=== PATIENT | female | born 1985 | race Caucasian/White ===

== ENCOUNTER 2025-01-29 04:42 | Emergency (ER) | payer OTHER, SELFPAY ==
--- OUTSIDE RECORDS SUMMARY | 2025-01-29 04:44 | XMS_ITS | Clinical Summary ---
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 16 g 4 Active busPIRone (BUSPAR) 5 mg tabletIndications :Situational anxiety Take 1-2 Tablets (5-10 mg) by mouth 3 times daily if needed for Anxiety. 30 Tablet 5 06/11/2024 10:39 AM WATER PLANT PUMP OPERATOR SUPERVISOR 4 Active ALPRAZolam 0.5 mg tabletIndications :Fear of flying Take 2 tablets (1 mg) an hour before each flight 4 Tablet 12/20/2024 12:09 PM CDT 5 Active lisdexamfetamine (Vyvanse) 30 mg capsuleIndication s:Attention deficit hyperactivity disorder (ADHD), predominantly inattentive type Take 1 Capsule (30 mg) by mouth once daily. 30 Capsule 01/21/2025 1:14 PM CDT 5 02/21/20 25 Active lisdexamfetamine (Vyvanse) 30 mg capsuleIndication s:Attention deficit hyperactivity disorder (ADHD), predominantly inattentive type Take 1 Capsule (30 mg) by mouth once daily. 30 Capsule 5 Active dextroamphetamine -amphetamine (AdderalL) 5 mg tabletIndications :Attention deficit hyperactivity disorder (ADHD), predominantly inattentive type Take 1 Tablet (5 mg) by mouth once daily. In afternoon 30 Tablet 5 02/17/20 25 Active dextroamphetamine -amphetamine (AdderalL) 5 mg tabletIndications :Attention deficit hyperactivity disorder (ADHD), predominantly inattentive type Take 1 Tablet (5 mg) by mouth once daily. In afternoon 30 Tablet 5 Active lisdexamfetamine (Vyvanse) 30 mg capsuleIndication s:Attention deficit hyperactivity disorder (ADHD), predominantly inattentive type Take 1 Capsule (30 mg) by mouth once daily. 30 Capsule 12/20/2024 12:09 PM CDT 5 01/20/20 25 dextroamphetamine -amphetamine (AdderalL) 5 mg tabletIndications :Attention deficit hyperactivity disorder (ADHD), predominantly inattentive type Take 1 Tablet (5 mg) by mouth once daily. In afternoon 30 Tablet 12/20/2024 12:09 PM CDT 5 01/20/20 25 Active Problems Problem Noted Date Diagnosed Date Attention deficit hyperactiv ity disorder (ADHD), predominantly inattentive type 12/18/2024 ASCUS of cervix with negative high risk HPV 11/2023 Overview (06/14/2024): 05/2024 ASCUS/HPV negative Plan: Pap and HPV due 05/2027 Recurrent oral herpes simplex infection 11/06/19 15 Supervision of normal first 06/26/2010 Encounters Date Type Department Care Team Description 12/18/2024 9:00 AM CDT Office Visit [facility] [address] [place] [address] Ruth Soni MD Medication Management (Has been taking 30mg - sometimes is enough, sometimes not. Midday dose is very helpful ) 12/18/2024 Travel from Last 3 Months Immunizations Immunization Administration Dates Next Due COVID-19 vaccine (Moderna 10 0mcg/0.5mL) KIMMY SANTILLAN 05/16/2021,09/08/2020,08/09/2020 DTaP 1984,1984 Hepatitis A (Adult) 08/02/2008 Hepatitis B (Peds) 08/20/2002,04/17/2002, 002 Hepatitis B, Unspecified 12/18/2001 Influenza, IIV4 04/15/2021,04/17/2020,05/23/2019 MMR 10/30/1989,03/13/1986 Polio Virus, Unspecified 1984,1984 Td (Age >=7 Years) 04/27/2006 Td, Preservative Free (age >= 7 Years) 9 Tdap 04/27/2006 Typhoid (injectable) 08/02/2008 Family History Medical History Relation Name Comments Alcoholism Brother 1 Arnold Good Health Brother 1 Julian allergies to ca ts and mold Good Health Brother 2 allergies to ca t and mold Good Health Brother 3 Good Health Brother 4 Diabetes Father type II Hyperlipidemia Father on medication Hypertension Father Thyroid Disease Father Alcoholism Maternal Grandfather Heart Disease Maternal Grandfather Heart attack Maternal Grandfather Arthritis Maternal Grandmother Cancer-breast Mother rare form that is slow growing Coronary artery disease Mother GI Disease Mother colititis and o verweight Heart Disease Mother Skin cancer Mother leg Alcohol/Drug Paternal Grandfather Heart Disease Paternal Grandfather Osteoporosis Paternal Grandmother Relation Name Status Comments Brother 1 Arnold Alive Brother 2 Alive Brother 3 Alive Brother 4 Alive Father Alive Maternal Grandfather Maternal Grandmother Mother Alive Paternal Grandfather Paternal Grandmother Social History Tobacco Use Types Packs/Day Years Used Date Smoking Tobacco: Never Smokeless Tobacco: Never Tobacco Cessation:Counseling Given: Yes Alcohol Use Standard Drinks/Week Comments Yes 0 (1 standard drink = 0.6 oz pur e alcohol) 1-2 per day PHQ-2 Answer Date Recorded PHQ-2 TOTAL SCORE 0 06/06/2024 Social Connections Answer Date Recorded Do you often feel lonely or isolated from those around you? 0 12/18/2024 Financial Resource Strain Answer Date R ecorded Difficulty of Paying Living Expenses 3 12/18/2024 Difficulty of Paying Living Expenses Not on file 12/18/2024 Food Insecurity Answer Date Recorded Do you worry your food will run out before you are able to buy more? 1 12/18/2024 Transportation Needs Answer Date Record ed Does lack of transportation keep you from medica l appointments? 1 12/18/2024 Does lack of transportation keep you from work, meetings or getting things that you need? 1 12/18/2024 Housing Stability Answer Date Recorded What is your housing situation today? 1 12/18/2024 Utilities Answer Date Recorded Do you have trouble paying f or utilities (for example, heat, electricity, water, phone)? 1 12/18/2024 Comments No Sex and Gender Information Value Date Recorded Sex Assigned at Not on file Legal Sex Female 5:24 AM WATER PLANT PUMP OPERATOR SUPERVISOR Gender Identity Not on file Sexual Orientation Not on file Occupation Industry Job Start Date Job End Date Not on file Not on file Not on file Not on file Obstetrics History Para Term AB IAB SAB Ectopic Multiple Livin g Live Births 2 2 2 2 Date Outcome GA Total Labor Labor/2nd/3rd Weight Sex Type Anes PTL Maggie A1 A5 Name Clin 2010 Term M Vag Comments:EMILY: 02/11/11; System Generated. Please review and update details. 2013 Term F Vag Last Filed Vital Signs Vital Sign Reading Time Taken Comments Blood Pressure 104/71 12/18/2024 8:59 AM CDT Pulse 72 12/18/2024 8:59 AM CDT Temperature 36.6 C (97.9 F) 09/19/2019 5:14 PM CDT Respiratory Rate 18 10/29/2014 4:11 PM CDT Oxygen Saturation 99% 12/18/2024 8:59 AM CDT Inhaled Oxygen Concentration - - Weight 64.4 kg (142 lb) 06/06/2024 8:49 AM WATER PLANT PUMP OPERATOR SUPERVISOR Height 162 cm (5' 3.78) 06/06/2024 8:49 AM WATER PLANT PUMP OPERATOR SUPERVISOR Body Mass Index 24.54 06/06/2024 8:49 AM WATER PLANT PUMP OPERATOR SUPERVISOR Plan of Treatment Health Maintenance Due Date Last Done Comments Hepatitis C screening for age 18-79 01/23/2002 COVID-19 vaccine series ( season) 2024 05/16/2021, 09/08/2020, 08/09/2020 Influenza Vaccine (#1) 2025 , 04/17/2020, 05/23/2019 BMI (ht and wt on same day) for age 18+ 06/06/2025 06/06/2024, 11/07/2023, 05/06/2023, Additional history exists Depression screening for age 12+ 06/06/2025 06/06/2024, 05/06/2023, 05/05/2023, Additional history exists Pap test for age 21-65 06/06/2027 , 06/06/2024, 09/26/2018, Additional history exists Tetanus booster 09/26/2028 09/26/2018, 04/10, 04/27/2006 Hepatitis B series for 19+ Completed 08/20, 04/17/2002, 01/17/2002, Additional history exists HIV for age 15-65 Completed 06/02/2010 Pneumococcal series for age 6-49 Aged Out No longer eligible based on patient's age to complete this topic Procedures Procedure Name Priority Date/Time Associated Diagnosis Comments RESEARCH STAFF MEMBER THIN PREP PAP SCREEN IMAGED Routine 06/06/2024 1:01 PM WATER PLANT PUMP OPERATOR SUPERVISOR Cervical cancer screening ANTI HIV 1/2 Routine 06/02/2010 6:38 PM WATER PLANT PUMP OPERATOR SUPERVISOR Supervision of normal first (HC) from Last 3 Months or Most Recently Relevant to Health Maintenance Results * (ABNORMAL) RESEARCH STAFF MEMBER THIN PREP PAP SCREEN IMAGED (06/06/2024 1:01 PM WATER PLANT PUMP OPERATOR SUPERVISOR) Case Report Gynecologic Cytology Report Case: [id number] Authorizing Provider: Ruth Soni Collected: 06/06/2024 Serafin Holden MD Ordering Location: [facility] Received: 06/06/2024 1301 Clinic First Screen: Ijeoma Garcia Rescreen: Baccam, Minie Pathologist: Sree Welch MD Specimen: RESEARCH STAFF MEMBER ThinPrep Vial Screening, Cervical 06/14/2024 8:45 AM WATER PLANT PUMP OPERATOR SUPERVISOR [facility] INTERPRETATION/ RESULT ATYPICAL SQUAMOUS CELLS OF UNDETERMINED SIGNIFICANCE (ASCUS)(A) (none) 06/14/2024 8:45 AM WATER PLANT PUMP OPERATOR SUPERVISOR [facility] at 0845 WATER PLANT PUMP OPERATOR SUPERVISOR SPECIMEN ADEQUACY Satisfactory for evaluation Endocervical component present 06/14/2024 8:45 AM WATER PLANT PUMP OPERATOR SUPERVISOR [facility] HPV REQUEST HPV and PAP 06/14/2024 8:45 AM WATER PLANT PUMP OPERATOR SUPERVISOR [facility] Date of LMP 04/30/2024 06/14/2024 8:45 AM WATER PLANT PUMP OPERATOR SUPERVISOR [facility] Last Pap Date 09/26/18 06/14/2024 8:45 AM WATER PLANT PUMP OPERATOR SUPERVISOR [facility] Last Pap Result NIL 8:45 AM WATER PLANT PUMP OPERATOR SUPERVISOR [facility] Abnormal Pap or [place] Bx in last 5 years No 06/14/2024 8:45 AM WATER PLANT PUMP OPERATOR SUPERVISOR [facility] Menstrual Status Regular Periods 06/14/2024 8:45 AM WATER PLANT PUMP OPERATOR SUPERVISOR [facility] [place] Bx Done Today No 06/14/2024 8:45 AM WATER PLANT PUMP OPERATOR SUPERVISOR [facility] Additional Information None given 06/14/2024 8:45 AM WATER PLANT PUMP OPERATOR SUPERVISOR [facility] Comment: Cytology is screened at [facility] - [address], [place] [address] and [facility] - [address] [place] [address] and [facility] - [address] [place] [address] Interpreted at [facility] - [address], [place] [address] Automated Review Successful 06/14/2024 8:45 AM [facility] Comment:Specimen processed s uccessfully by automated payroll analyst device, ThinPrep Imaging System, [employer] ANCILLARY TESTING RESEARCH STAFF MEMBER HPV Ordered, Please see separate report 06/14/2024 8:45 AM WATER PLANT PUMP OPERATOR SUPERVISOR [facility] Note The pap test is a screening technique, not a diagnostic procedure. It is used primarily to screen for squamous cancers and precursor lesions. Published studies have shown that it is subject to both false negative and false positive results. The pap test should not be used as the sole means to diagnose or exclude pre-malignant and malignant lesions. 06/14/2024 8:45 AM WATER PLANT PUMP OPERATOR SUPERVISOR [facility]AL LAB[facility] Other (Cervical) Non-Blood / Unknown 06/06/2024 1:01 PM WATER PLANT PUMP OPERATOR SUPERVISOR 06/06/2024 1:01 PM WATER PLANT PUMP OPERATOR SUPERVISOR us Ruth Soni MD PATHOLOGY/CYTOLOGY Final Result [facility] [address] [address], [place] * HIV (06/02/2010 6:38 PM WATER PLANT PUMP OPERATOR SUPERVISOR) ANTI HIV 1/2 Non-reacti ve [facility] Blood specimen (specimen) BLOOD SPECIMEN / Unknown 06/02/2010 6:38 PM WATER PLANT PUMP OPERATOR SUPERVISOR 06/02/2010 6:19 PM WATER PLANT PUMP OPERATOR SUPERVISOR us Arlette Barbosa GAS ATTENDANT SEND OUTS Final Result Performing Organization Address City/[facility]/ZIP Co de Phone Number [facility] INTERNAL ZIP [phone] [address] from Last 3 Months or Most Recently Relevant to Health [place] [address] Care Teams Candy Rolling Machine Operator Relationship Specialty Start Date End Date [place] [address] PCP - General Family Practice 01/05/24
[2025-01-29 04:46] VITALS: BP 138/85; PULSE 68; RESP 18; TEMP 36.9; O2SAT 99; BMI 24.8
--- NOTE | 2025-01-29 04:51 | ED.GENADULT ---
HPI - General Adult General Time Seen by Provider: 04:51 Date Seen: 01/29/25 Chief complaint: Skin/Abscess/Foreign Body Stated complaint: cat scratched L eye Source: patient Mode of arrival: ambulatory Limitations: no limitations History of Present Illness HPI narrative: 40-year-old female comes in a scratch. Patient's cat got startled and scratched her eyelid. No vision changes. Does not wear contacts. Related Data Home Medications ?Medication ?Instructions ?Recorded ?Confirmed lisdexamfetamine 30 mg capsule 30 mg PO DAILY 01/29/25 01/29/25 Previous Rx's ?Medication ?Instructions ?Recorded amoxicillin 875 mg-potassium 1 tab PO BID #6 tabs 01/29/25 clavulanate 125 mg tablet Allergies Allergy/AdvReac Type Severity Reaction Status Date / Time No Known Drug Allergies Allergy Verified 01/29/25 04:49 [facility] Medical History (Updated 01/29/25 @ 04:59 by Alok Bae MD) ADHD ?F90.9 - Attention-deficit hyperactivity disorder, unspecified type (ICD-10) Social History Smoking Status: Never smoker Second hand tobacco smoke exposure: No How often do you have a drink containing alcohol: never AUDIT-C Alcohol total score: 0 Non-prescribed substance use: denies use Exam Narrative: Exam Narrative: General: well nourished , NAD Head: Atraumatic and normocephalic ENT: External ears and external nose are normal Eyes: Conjunctiva clear, pupils are equal reactive, external ocular motions are intact. Scratch of the right upper lid with some surrounding bruising, not through and through. Superficial scratch to the lower lid. Neck: Full spontaneous range of motion of the neck Lungs: No respiratory distress Musculoskeletal: No tenderness or deformity Neurologic: No gross focal neurologic deficits Skin: No rashes Psych: Mood and affect are appropriate Const: Vital Signs, click to edit/add: Vital Signs - 24 hr 01/29/25 04:46 Temperature 98.4 F Pulse Rate [Right Pulse Oximeter] 68 Respiratory Rate 18 Blood Pressure [Ri ght Upper Arm] 138/85 Pulse Oximetry 99 Oxygen Delivery Me thod Room Air Course Course ED Course: Patient seen and examined, presents today with scratch to the upper lower eyelids after her cat got startled and editor trade journal. These are not through and through, there is no conjunctival injection to suggest abrasion or foreign body. No vision changes. Discussed wound care in stable for discharge. Patient is anxious about infection, as this is a scratch infection risk is low but will be started on a couple of days antibiotics. Vital Signs Vital signs: Initial Vital Signs Temperature 98.4 F 01/29/25 04:46 Temperature Source Temporal Artery Scan 01/29/25 04:46 Pulse Rate 68 01/29/25 04:46 Respiratory Rate 18 01/29/25 04:46 Blood Pressure 138/85 01/29/25 04:46 Blood Pressure Mean 102 01/29/25 04:46 Blood Pressure Position Sitting 01/29/25 04:46 Pulse Oximetry 99 01/29/25 04:46 Oxygen Delivery Method Room Air 01/29/25 04:46 Vital Signs Temperature 98.4 F 01/29/25 04:46 Pulse Rate 68 01/29/25 04:46 Respiratory Rate 18 01/29/25 04:46 Blood Pressure 138/85 01/29/25 04:46 Pulse Oximetry 99 01/29/25 04:46 Oxygen Delivery Method Room Air 01/29/25 04:46 Temperature 98.4 F 01/29/25 04:46 Pulse Rate 68 01/29/25 04:46 Respiratory Rate 18 01/29/25 04:46 Blood Pressure 138/85 01/29/25 04:46 Pulse Oximetry 99 01/29/25 04:46 Oxygen Delivery Method Room Air 01/29/25 04:46 Discharge Plan Discharge Clinical Impression: Eyelid laceration Patient Disposition: Home, Self-Care Instructions: Laceration Without Closure (ED) Additional Instructions: Wash the area gently with soap and water daily Cool packs 10-15 minutes time every 2-3 hours while awake for 24 hours to help with swelling Activity Level: No Restrictions Discharge Diet: Regular Prescriptions: New amoxicillin-pot clavulanate 875-125 mg tablet 1 tab PO BID Qty: 6 0RF No Action lisdexamfetamine 30 mg capsule 30 mg PO DAILY Stand Alone Forms: MyHealth Info Instructions
[2025-01-29 05:09] VITALS: BP 128/81; PULSE 61; RESP 18; TEMP 36.9; O2SAT 99
[2025-01-29 05:11] VITALS: BP 128/81; PULSE 61; RESP 18; TEMP 36.9
== END 2025-01-29 05:11 | disposition home or self-care (01) ==
PROVIDERS: Emergency Provider Family Medicine; PCP Student in an Organized Health Care Education/Training Program
DX: S00.212A Abrasion of left eyelid and periocular area, initial encounter (principal); W55.03XA Scratched by cat, initial encounter
CPT/HCPCS: 99282; 99283